=== PATIENT | male | born 1980 | race Caucasian/White ===

== ENCOUNTER 2021-03-05 14:50 | Emergency (ER) | payer OTHER ==
[~2021-03-05] VITALS: Ht 180 cm; Wt 84.0 kg
[2021-03-05] MEDS ORDERED: KETOROLAC 60 MG/2 ML VIAL IM STA (15:29)
[2021-03-05] MEDS ORDERED: TETANUS,DIPTH,PERTUSS P/F (BOOSTRIX) 0.5 ML VIAL IM ONE (15:30)
--- NOTE | 2021-03-05 15:38 | ED Lower Extremity ---
General Chief Complaint: Laceration Stated Complaint: RT FOOT INJ Nursing Triage Note: PT STEPPED PN A NAIL 2 DAYS AGO. C/O RIGHT FOOT PAIN. NOT UP TO DATE ON TETANUS./ Nursing Sepsis Screen: No Definite Risk Source: patient Exam Limitations: no limitations History of Present Illness Date Seen by Provider: Mar 05, 2021 Time Seen by Provider: 15:21 Initial Comments Here with report of bilateral feet hurting after he stepped on nails a couple days ago. States he walks barefoot to toughen his feet but he was wearing loafers at the time. Has soaked his feet in Epson salt and elevated them. He did clean him after the wounds. Does have a little swelling and bruising to the proximal foot below the medial malleolus. He is walking okay. He states that he did take his morphine yesterday and the day before but not today. He does report to be in a lot of pain. Also complains of right ear pain and states his ear is thirsty and complains of water in his ear. [facility]. He is hoping for some high-powered antibiotics. Also would like his tetanus updated. Onset: other (2 days ago) Severity: mild, moderate Pain/Injury Location: bilateral foot Method of Injury: other (Stepped on nails) Modifying Factors: Worse With Movement; Improves With Rest Allergies and Home Medications Allergies Coded Allergies: acetaminophen (Verified Allergy, Unknown, 03/05/21) Home Medications Cephalexin 500 Mg Capsule, 500 MG PO Q6H Prescribed by: BERNICE MILLS on 03/05/21 1540 Patient Home Medication List Home Medication List Reviewed: Yes Review of Systems Constitutional: see HPI; No chills, No fever EENTM: ear pain; No ear discharge Respiratory: no symptoms reported Cardiovascular: no symptoms reported Musculoskeletal: see HPI, joint pain, muscle pain Skin: change in color, lesions Psychiatric/Neurological: No Symptoms Reported Past Jyohdgj-Xgxupa-Gwbrxu Hx Past Med/Social Hx: Reviewed Nursing Past Med/Soc Hx Patient Social History Alcohol Use: Denies Use Smoking Status: Current Everyday Smoker Type Used: Cigarettes Recent Infectious Disease Expo: No Recent Hopitalizations: No Seasonal Allergies Seasonal Allergies: No Past Medical History Surgeries: No Respiratory: Yes Asthma Cardiac: No Neurological: No Genitourinary: No Gastrointestinal: No Musculoskeletal: No Endocrine: No HEENT: No Cancer: No Psychosocial: Yes ADD/ADHD, PTSD Integumentary: No Blood Disorders: No Family Medical History Reviewed Nursing Family Hx Physical Exam Vital Signs Vital Signs - First Documented 03/05/21 15:12 Temp 35.7 Pulse 103 Resp 20 B/P (MAP) 136/91 (106) Pulse Ox 99 O2 Delivery Room Air Capillary Refill : Less Than 3 Seconds Height, Weight, BMI Height: '" Weight: lbs. oz. kg; 25.00 BMI Method: General Appearance: WD/WN, no apparent distress Cardiovascular: regular rate, rhythm, no murmur Respiratory: lungs clear, normal breath sounds Feet: bilateral foot other (Bilateral feet evaluated. Right foot he reports puncture wound to the ball of the foot and states the nail went quite a ways th rough. No obvious significant puncture wound or erythema. There is some swelling and ecchymosis to the proximal foot distal to the medial malleolus. Left foot has small marking near the heel on the medial aspect that he is reporting is a puncture wound. It does not appear to break the skin but there is a michelle there. Tender at the heel and fascia.) Neurologic/Tendon: normal sensation, normal motor functions, normal tendon functions Neurologic/Psychiatric: alert Skin: warm/dry, ecchymosis (As described above) Progress/Results/Core Measures Results/Orders My Orders Orders - BERNICE MILLS MD Foot 2 View Bilateral (03/05/21 15:29) Ketorolac Injection (Toradol Injection) (03/05/21 15:29) Dipht,Pertuss(Acell),Tet Adult (Boostrix (03/05/21 15:30) Medications Given in ED Current Medications Medications Dose Ordered Sig/Rozina Route Start Time Stop Time Status Last Admin Dose Admin Diphtheria/ Tetanus/Acell Pertussis 0.5 ml ONCE ONCE IM 03/05/21 15:30 03/05/21 15:32 DC 03/05/21 15:35 0.5 ML Vital Signs/I&O 03/05/21 03/05/21 15:12 16:28 Temp 35.7 35.7 Pulse 103 103 Resp 20 20 B/P (MAP) 136/91 (106) 136/91 (106) Pulse Ox 99 99 O2 Delivery Room Air Blood Pressure Mean: 106 Progress Progress Note : Progress Note Seen and evaluated. X-ray of bilateral feet. Tetanus updated. Toradol 60 mg IM. Monitor patient. 1640: X-rays negative. We will initiate antibiotic for possible puncture. Patient has been able to walk his dog and walk about the ED without difficulty. Given relatively scant wound evidence or concerns, Keflex is appropriate. 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 Discharged home with return precautions. Patient verbalized understanding instructions and agreement with plan. Diagnostic Imaging Diagonstic Imaging: Xray Plain Films/CT/US/NM/MRI: other Comments [facility], [place] NAME: ELIN JOSEPH [facility] REC#: [id number] PT STATUS: REG ER : 1980 PHYSICIAN: BERNICE MILLS MD ADMIT DATE: 03/05/21/ER FS Draft Date of Exam:03/05/21 FOOT 2 VIEW BILATERAL HISTORY: Stepped on nails bilaterally. Puncture wounds. TECHNIQUE: 2 views of the bilateral feet. COMPARISON: None FINDINGS: Right foot: No acute fracture or dislocation is seen in the right foot. Alignment appears normal. Joint spaces are preserved. No cortical erosions are seen. No radiopaque foreign body is identified. An ankle monitor is noted. Left foot: No acute fracture or dislocation is seen in the left foot. Alignment appears normal. Joint spaces are preserved. No cortical erosions are seen. No radiopaque foreign body is seen. An ankle monitor is noted. IMPRESSION: 1. No acute osseous abnormality or radiopaque foreign body is seen in the bilateral feet. Dictated on workstation # [id number] Dict: 03/05/21 1621 Trans: 03/05/21 1625 [facility] [id number] Interpreted by: ELIN CRANDALL MD Electronically signed by: Departure Impression Primary Impression: Puncture wound of foot excluding toes without complication Qualified Codes: S91.339A - Puncture wound without foreign body, unspecified foot, initial encounter Additional Impression: Congestion of upper respiratory tract Disposition: 01 HOME, SELF-CARE Condition: Stable Departure-Patient Inst. Decision time for Depature: 15:37 Patient Instructions: Wound Care (DC), Skin Abrasions (DC) Add. Discharge Instructions: All discharge instructions reviewed with patient and/or family. Voiced understanding. You may take [id number] Afrin nasal spray or the generic, 12-hour relief, 2 sprays to each nostril for 3 days only and then stop. Do not use more than 3 days. Continue your home medications as previously prescribed. You may continue to elevate the feet as needed and keep wounds clean and dry. Return for worse pain, swelling, weakness, breathing problems, red streaks up the leg, fever or other concerns as needed. Scripts Cephalexin (Cephalexin) 500 Mg Capsule 500 MG PO Q6H for 7 Days, #28 CAP 0 Refills Prov: BERNICE MILLS MD 03/05/21 BERNICE MILLS MD Mar 05, 2021 15:37
[2021-03-05] MEDS ORDERED: CEPH500C PO (15:40)
--- NOTE | 2021-03-05 16:26 | Diagnostic Imaging Report ---
HISTORY: Stepped on nails bilaterally. Puncture wounds. TECHNIQUE: 2 views of the bilateral feet. COMPARISON: None FINDINGS: Right foot: No acute fracture or dislocation is seen in the right foot. Alignment appears normal. Joint spaces are preserved. No cortical erosions are seen. No radiopaque foreign body is identified. An ankle monitor is noted. Left foot: No acute fracture or dislocation is seen in the left foot. Alignment appears normal. Joint spaces are preserved. No cortical erosions are seen. No radiopaque foreign body is seen. An ankle monitor is noted. IMPRESSION: 1. No acute osseous abnormality or radiopaque foreign body is seen in the bilateral feet. Dictated by: Dictated on workstation # [id number]
[2021-03-05 16:28] VITALS: BP 136/91
== END 2021-03-05 16:45 | disposition home or self-care (01) ==
LOC: ER FS 14:53
DX: S91.332A Puncture wound without foreign body, left foot, initial encounter (principal); S91.331A Puncture wound without foreign body, right foot, initial encounter; J98.8 Other specified respiratory disorders; J45.909 Unspecified asthma, uncomplicated; F17.210 Nicotine dependence, cigarettes, uncomplicated; Z88.6 Allergy status to analgesic agent; W45.0XXA Nail entering through skin, initial encounter
CPT/HCPCS: 90715

== ENCOUNTER → 2023-02-06 | Outpatient (CLI) | payer OTHER ==
[~2023-02-06] MED LIST: CEPH500C PO
--- NOTE | 2023-02-06 16:55 | Diagnostic Imaging Report ---
Indication: Right elbow pain. Time of Exam: 1:05 PM 3 views of the right elbow demonstrate normal alignment. Joint spaces are well-maintained. No fracture, dislocation or effusion is identified. Impression: No acute bony abnormality is detected. Dictated by: Dictated on workstation # [id number]
== END ==
LOC: RAD FS 12:53
PROVIDERS: ATTEND Nurse Practitioner Family
DX: S59.901A Unspecified injury of right elbow, initial encounter (principal); X58.XXXA Exposure to other specified factors, initial encounter
CPT/HCPCS: 73080